=== PATIENT | female | born 1970 | race Caucasian/White ===

== ENCOUNTER 2018-07-05 07:13 | Day surgery (SDC) | payer MEDICAID ==
[2018-07-05] MEDS: SOD CHLORIDE 0.9% 1,000 ML IV (09:00)
[2018-07-05] MEDS ORDERED: DIPHENHYDRAMINE 50 MG INJ (09:05)
[2018-07-05] MEDS: DIPHENHYDRAMINE 50 MG INJ IV (09:07)
[2018-07-05] MEDS: METHYLPREDNISOLONE 125 MG INJ IV (09:25)
[2018-07-05] MEDS: CEFAZOLIN 1 GM/50 ML (PMX) 50 ML IVPB ×2 (10:30→10:42)
[2018-07-05] MEDS: MIDAZOLAM 1 MG/ML 2 ML INJ (10:41)
[2018-07-05] MEDS: ONDANSETRON 4 MG INJ (10:41)
[2018-07-05] MEDS: DIPHENHYDRAMINE 50 MG INJ (11:05)
[2018-07-05] MEDS: FENTAnyl 50 MCG/ML VIAL (11:05)
[2018-07-05] MEDS: LIDOCAINE 1%/EPI 30 ML INJ (11:10)
[2018-07-05] MEDS: POLYMYXIN/BACITRACIN 1L IRRIG IRR (11:20)
[2018-07-05] MEDS: HEPARIN 1000 UNITS/ML 10 ML INJ (11:25)
[2018-07-05] MEDS ORDERED: HYDROCODONE/APAP (5/325) TAB PO (12:00)
== END 2018-07-05 14:12 | disposition home or self-care (01) ==
LOC: SDS 07:13
DX: C50.912 Malignant neoplasm of unspecified site of left female breast (principal)
CPT/HCPCS: 36561; 76937; 76942; 93306

== ENCOUNTER 2018-07-17 10:38 | Emergency (ER) | payer MEDICAID ==
[2018-07-17] MEDS: DEXTROSE 5%-0.9% NACL 1,000 ML IV ×2 (11:31→11:36)
== END 2018-07-17 12:48 | disposition home or self-care (01) ==
LOC: FTE 10:38
DX: E86.0 Dehydration (principal); T45.1X5A Adverse effect of antineoplastic and immunosuppressive drugs, initial encounter; C50.919 Malignant neoplasm of unspecified site of unspecified female breast
CPT/HCPCS: 96360; 99284-25